=== PATIENT | female | born 1950 | race American Indian/Alaskan Native ===

== ENCOUNTER 2017-11-11 14:15 | Emergency (ER) | payer MEDICARE, MEDICAID ==
[2017-11-11 14:51] VITALS: BP 124/65
[2017-11-11 15:39] LABS: ANION GAP 15.9; CHLORIDE,CL 93 mmol/L (101-111); SODIUM,NA 132 mmol/L (135-145)
[2017-11-11] MEDS ORDERED: Potassium Chloride 10 MEQ Tab.ER PO ONE (16:16)
--- NOTE | 2017-11-11 16:16 | EDM.PDOC ---
ED HPI GENERAL MEDICAL PROBLEM - General Chief Complaint: Respiratory Problem Stated Complaint: FLU [id number] Time Seen by Provider: 11/11/17 15:00 Source of Information: Reports: Patient, RN, RN Notes Reviewed History Limitations: Reports: No Limitations - History of Present Illness INITIAL COMMENTS - FREE TEXT/NARRATIVE: Patient presents to ER with complaint of headache, chest pain, cough with green sputum for almost 1 week with decreased appetite and shortness of breath. She has fever and chills. No nausea, vomiting or diarrhea. Onset: Gradual Duration: Getting Worse Location: Reports: Chest Quality: Reports: Ache Severity: Moderate Improves with: Reports: None Worsens with: Reports: None Associated Symptoms: Reports: No Other Symptoms Chest Pain Score (Numeric/FACES): 8 - Related Data Allergies Allergy/AdvReac Type Severity Reaction Status Date / Time No Known Allergies Allergy Verified 03/23/13 18:51 Home Meds: Home Meds Albuterol [Proventil Neb Soln] 0.63 mg INH DAILY PRN 03/23/13 [History] Cetirizine [ZyrTEC] 5 mg PO DAILY 03/23/13 [History] Fluticasone/Salmeterol [Advair 100-50 Diskus] 2 puff INH BID 03/23/13 [History] Omeprazole 20 mg PO DAILY 03/23/13 [History] Tiotropium [Spiriva] 18 mcg INH DAILY 03/23/13 [History] hydroCHLOROthiazide [Hydrochlorothiazide] 12.5 mg PO DAILY 03/23/13 [History] Mirtazapine 30 mg PO BEDTIME 10/30/13 [History] Venlafaxine HCl [Venlafaxine ER] 112.5 mg PO DAILY 10/30/13 [History] Oxybutynin 10 mg PO BID 08/02/15 [History] Past Medical History HEENT History: Reports: Allergic Rhinitis, Impaired Vision Cardiovascular History: Reports: Hypertension Respiratory History: Reports: COPD, SOB Gastrointestinal History: Reports: GERD Genitourinary History: Reports: Retention, Urinary Musculoskeletal History: Reports: Back Pain, Chronic, Osteoarthritis Psychiatric History: Reports: Anxiety, Depression - Past Surgical History GI Surgical History: Reports: Appendectomy Female Surgical History: Reports: Cystectomy Musculoskeletal Surgical History: Reports: Shoulder Surgery Social & Family History - Family History Family Medical History: Noncontributory - Tobacco Use Smoking Status *Q: Current Every Day Smoker Years of Tobacco use: 50 Packs/Tins Daily: 0.7 - Recreational Drug Use Recreational Drug Use: Yes Recreational Drug Type: Reports: Marijuana/Hashish - Living Situation & Occupation Occupation: Retired ED ROS GENERAL - Review of Systems Review Of Systems: ROS reveals no pertinent complaints other than HPI. ED EXAM, GENERAL - Physical Exam Exam: See Below Exam Limited By: No Limitations General Appearance: Other (generally ill appearing) Eye Exam: Bilateral Eye: EOMI, Normal Inspection, PERRL Ears: Normal External Exam, Normal Canal, Hearing Grossly Normal, Normal TMs Nose: Normal Inspection, Normal Mucosa, No Blood Throat/Mouth: Normal Inspection Head: Atraumatic, Normocephalic Neck: Normal Inspection, Supple, Non-Tender, Full Range of Motion Respiratory/Chest: Other (diminished crackles and wheezes bilaterally) Cardiovascular: Normal Peripheral Pulses, Regular Rate, Rhythm, No Edema, No Gallop, No JVD, No Murmur, No Rub GI/Abdominal: Normal Bowel Sounds, Soft, Non-Tender, No Organomegaly, No Distention, No Abnormal Bruit, No Mass (Female) Exam: Deferred Rectal (Female) Exam: Deferred Back Exam: Normal Inspection, Full Range of Motion, NT Extremities: Normal Inspection, Normal Range of Motion, Non-Tender, Normal Capillary Refill, No Pedal Edema Neurological: Alert, Oriented, CN II-XII Intact, Normal Cognition, Normal Gait, Normal Reflexes, No Motor/Sensory Deficits Psychiatric: Normal Affect, Normal Mood Skin Exam: Warm, Dry, Intact, Normal Color, No Rash Lymphatic: No Adenopathy EKG INTERPRETATION EKG Date: 11/11/17 Time: 15:17 Rhythm: Other (sinus rhythm with PAC) Rate (Beats/Min): 73 Comparison: No Change Course - Vital Signs Last Recorded V/S: Last Vital Signs Temp 99.2 F 11/11/17 14:50 Pulse 75 11/11/17 14:50 Resp 20 11/11/17 14:50 BP 124/65 11/11/17 14:50 Pulse Ox - Orders/Labs/Meds Orders: Active Orders 24 hr Category Date Time Status EKG Documentation Completion [RC] STAT Care 11/11/17 15:05 Active Labs: Laboratory Tests 09/14/18 09/14/18 Range/Units 15:12 15:12 WBC 10.1 H (5.0-10.0) 10^3/uL RBC 5.00 (4.2-5.4) 10^6/uL Hgb 13.5 D (12.0-16.0) g/dL Hct 39.9 (37.0-47.0) % MCV 79.8 L D (80-100) fL MCH 27.0 (27.0-34.0) pg MCHC 33.8 (33.0-35.0) g/dL Plt Count 251 (150-450) 10^3/uL Neut % (Auto) 82.3 H (42.2-75.2) % Lymph % (Auto) 9.4 L (20.5-50.1) % Morrison % (Auto) 7.9 (2-8) % Eos % (Auto) 0.3 L (1.0-3.0) % Baso % (Auto) 0.1 (0.0-1.0) % Add Manual Diff Yes Neutrophils % (Manual) 82 H (42-75) % Band Neutrophils % 1 % Lymphocytes % (Manual) 9 L (20-50) % Atypical Lymphs % 3 % Monocytes % (Manual) 5 (2-8) % Sodium 132 L (135-145) mmol/L Potassium 2.9 L D (3.6-5.0) mmol/L Chloride 93 L (101-111) mmol/L Carbon Dioxide 26.0 (21.0-31.0) mmol/L Anion Gap 15.9 BUN 16 (7-18) mg/dL Creatinine 0.9 (0.6-1.3) mg/dL Est Cr Clr Drug Dosing 48.80 mL/min Estimated GFR (MDRD) > 60 BUN/Creatinine Ratio 17.77 Glucose 105 (74-105) mg/dL Calcium 8.9 (8.4-10.2) mg/dl Total Bilirubin 0.9 (0.2-1.0) mg/dL AST 20 (10-42) IU/L ALT 14 (10-60) IU/L Alkaline Phosphatase 149 H (42-121) IU/L Troponin I < 0.02 (0.00-0.02) ng/ml Total Protein 8.8 H (6.7-8.2) g/dl Albumin 3.5 (3.2-5.5) g/dl Globulin 5.3 Albumin/Globulin Ratio 0.66 Meds: Medications Discontinued Medications Generic Name Dose Route Start Last Admin Trade Name Yan PRN Reason Stop Dose Admin Potassium Chloride 40 meq 11/11/17 16:16 11/11/17 16:36 Klor-Con 10 PO 11/11/17 16:17 40 meq ONETIME ONE Administration - Radiology Interpretation Free Text/Narrative:: chest xray: IMPRESSION: Patchy airspace disease at the left base. New since the prior exam. Atherosclerosis. Mild pulmonary emphysema. Thank you for allowing us to participate in the care of your patient. Dictated and Authenticated by: Gladis Mistry MD 11/11/2017 3:47 PM Central Time ([place] & [place]) See rad report Departure - Departure Time of Disposition: 16:22 Disposition: Home, Self-Care 01 Condition: Fair Clinical Impression: Acute exacerbation of chronic obstructive pulmonary disease (COPD) - Discharge Information *PRESCRIPTION DRUG MONITORING PROGRAM REVIEWED*: No *COPY OF PRESCRIPTION DRUG MONITORING REPORT IN PATIENT SAJI: No Instructions: Hypokalemia Referrals: Kenneth Gonzales MD [Primary Care Provider] - Forms: ED Department Discharge Additional Instructions: RX: Tessalon Perles, Prednisone, Albuterol Inhaler, Potassium Chloride, Azithromycin Follow up with your primary care facility next week. - My Orders Last 24 Hours: My Active Orders 11/11/17 15:05 EKG Documentation Completion [RC] STAT - Assessment/Plan Last 24 Hours: My Active Orders 11/11/17 15:05 EKG Documentation Completion [RC] STAT
== END 2017-11-11 16:39 | disposition home or self-care (01) ==
LOC: DL.ED 14:15
DX: J44.1 Chronic obstructive pulmonary disease with (acute) exacerbation (principal); I10 Essential (primary) hypertension; F17.210 Nicotine dependence, cigarettes, uncomplicated; Z79.899 Other long term (current) drug therapy
CPT/HCPCS: 36415; 71046; 80053; 84484; 85025; 93005; 99284; A9270; 93010

== ENCOUNTER 2018-10-22 05:28 | Emergency (ER) | payer MEDICARE, OTHER ==
[2018-10-22 05:50] VITALS: BP 109/76
[2018-10-22] MEDS ORDERED: Albuterol/Ipratropium 3.0-0.5 MG/3 ML Neb Soln NEB ONE (05:59)
[2018-10-22] MEDS ORDERED: methylPREDNISolone Sodium Succinate 125 MG/2 ML SDV IVPUSH ONE (05:59)
--- NOTE | 2018-10-22 06:09 | EDM.PDOC ---
<Albert Coley - Last Filed: 10/22/18 06:17> ED HPI GENERAL MEDICAL PROBLEM - General Chief Complaint: Respiratory Problem Stated Complaint: PNEUMONIA Time Seen by Provider: 10/22/18 06:06 Source of Information: Reports: Patient History Limitations: Reports: No Limitations - History of Present Illness INITIAL COMMENTS - FREE TEXT/NARRATIVE: sob past 3 days worse tonight, just d/c from [facility] for pneumonia and was Dx with lung CA pending biopsy. not on home O2 yet. 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: Other Medication(s) Generalized Pain Score (Numeric/FACES): 4 - Related Data Allergies Allergy/AdvReac Type Severity Reaction Status Date / Time No Known Allergies Allergy Verified 10/22/18 06:13 Home Meds: Home Meds Albuterol [Proventil Neb Soln] 0.63 mg INH DAILY PRN 03/23/13 [History] Cetirizine [ZyrTEC] 5 mg PO DAILY 03/23/13 [History] Fluticasone/Salmeterol [Advair 100-50 Diskus] 2 puff INH BID 03/23/13 [History] Omeprazole 20 mg PO DAILY 03/23/13 [History] Tiotropium [Spiriva] 18 mcg INH DAILY 03/23/13 [History] hydroCHLOROthiazide [Hydrochlorothiazide] 12.5 mg PO DAILY 03/23/13 [History] Mirtazapine 30 mg PO BEDTIME 10/30/13 [History] Venlafaxine HCl [Venlafaxine ER] 112.5 mg PO DAILY 10/30/13 [History] Oxybutynin 10 mg PO BID 08/02/15 [History] Past Medical History HEENT History: Reports: Allergic Rhinitis, Impaired Vision Cardiovascular History: Reports: Hypertension Respiratory History: Reports: COPD, SOB Gastrointestinal History: Reports: GERD Genitourinary History: Reports: Retention, Urinary Musculoskeletal History: Reports: Back Pain, Chronic, Osteoarthritis Psychiatric History: Reports: Anxiety, Depression Oncologic (Cancer) History: Reports: Lung Other Oncologic History: States new dx within the last few weeks. Awaiting biopsy this week. - Past Surgical History GI Surgical History: Reports: Appendectomy Female Surgical History: Reports: Cystectomy Musculoskeletal Surgical History: Reports: Shoulder Surgery Oncologic Surgical History: Reports: None Social & Family History - Family History Family Medical History: Noncontributory - Tobacco Use Smoking Status *Q: Current Some Day Smoker Years of Tobacco use: 55 Packs/Tins Daily: 0.2 Used Tobacco, but Quit: No Second Hand Smoke Exposure: Yes - Caffeine Use Caffeine Use: Reports: Coffee, Soda - Recreational Drug Use Recreational Drug Use: Yes Drug Use in Last 12 Months: Yes Recreational Drug Type: Reports: Marijuana/Hashish Recreational Drug Use Frequency: Binges Recreational Drug Last Use: yesterday - Living Situation & Occupation Occupation: Retired ED ROS GENERAL - Review of Systems Review Of Systems: ROS reveals no pertinent complaints other than HPI. ED EXAM, GENERAL - Physical Exam Exam: See Below Exam Limited By: No Limitations General Appearance: Alert, WD/WN, Mild Distress (sob) Ears: Hearing Grossly Normal Throat/Mouth: Normal Voice, No Airway Compromise Head: Atraumatic Neck: Non-Tender, Full Range of Motion Respiratory/Chest: Decreased Breath Sounds, Rales, Rhonchi, Wheezing, Accessory Muscle Use, Other (subcostal) Cardiovascular: Regular Rate, Rhythm GI/Abdominal: Soft, Non-Tender Neurological: Alert, Oriented, Normal Cognition, Normal Gait, No Motor/Sensory Deficits Psychiatric: Normal Affect, Normal Mood Skin Exam: Warm, Dry, Normal Color Lymphatic: No Adenopathy Course - Vital Signs Last Recorded V/S: Last Vital Signs Temp 36.6 C 10/22/18 05:45 Pulse 111 H 10/22/18 05:45 Resp 24 H 10/22/18 05:45 BP 109/76 10/22/18 05:45 Pulse Ox 92 L 10/22/18 05:51 - Orders/Labs/Meds Orders: Active Orders 24 hr Category Date Time Status RT Aerosol Therapy [RC] ASDIRECTED Care 10/22/18 05:59 Active Chest 1V Frontal [CR] Urgent Exams 10/22/18 06:14 Taken CULTURE BLOOD [BC] Stat Lab 10/22/18 06:13 Received Labs: Laboratory Tests 10/22/18 10/22/18 10/22/18 Range/Units 06:09 06:09 06:09 WBC 8.7 (5.0-10.0) 10^3/uL RBC 5.10 (4.2-5.4) 10^6/uL Hgb 13.2 (12.0-16.0) g/dL Hct 40.0 (37.0-47.0) % MCV 78.4 L (80-100) fL MCH 25.9 L (27.0-34.0) pg MCHC 33.0 (33.0-35.0) g/dL Plt Count 214 (150-450) 10^3/uL Neut % (Auto) 80.0 H (42.2-75.2) % Lymph % (Auto) 10.1 L (20.5-50.1) % Bowie % (Auto) 8.9 H (2-8) % Eos % (Auto) 0.8 L (1.0-3.0) % Baso % (Auto) 0.2 (0.0-1.0) % Sodium 133 L (135-145) mmol/L Potassium 2.6 L (3.6-5.0) mmol/L Chloride 95 L (101-111) mmol/L Carbon Dioxide 29.0 (21.0-31.0) mmol/L Anion Gap 11.6 BUN 10 (7-18) mg/dL Creatinine 0.7 (0.6-1.3) mg/dL Est Cr Clr Drug Dosing 59.15 mL/min Estimated GFR (MDRD) > 60 BUN/Creatinine Ratio 14.28 Glucose 125 H (74-105) mg/dL Lactic Acid 0.7 (0.5-2.2) mmol/L Calcium 8.3 L (8.4-10.2) mg/dl Total Bilirubin 0.8 (0.2-1.0) mg/dL AST 21 (10-42) IU/L ALT 11 (10-60) IU/L Alkaline Phosphatase 88 (42-121) IU/L Total Protein 7.0 (6.7-8.2) g/dl Albumin 3.2 (3.2-5.5) g/dl Globulin 3.8 Albumin/Globulin Ratio 0.84 Meds: Medications Discontinued Medications Generic Name Dose Route Start Last Admin Trade Name Freq PRN Reason Stop Dose Admin Albuterol/Ipratropium 3 ml 10/22/18 05:59 10/22/18 06:17 Duoneb 3.0-0.5 Mg/3 Ml NEB 10/22/18 06:00 3 ml ONETIME ONE Administration Lorazepam 1 mg 10/22/18 06:27 08/25/19 06:40 Ativan IVPUSH 10/22/18 06:28 1 mg ONETIME ONE Administration Methylprednisolone Sodium Succinate 125 mg 10/22/18 05:59 10/22/18 06:18 Solu-Medrol IVPUSH 10/22/18 06:00 125 mg ONETIME ONE Administration Departure - Departure Disposition: DC/Tfer to [facility] 02 Clinical Impression: Shortness of breath, History of lung cancer - Discharge Information Forms: Interfacility Transfer EMTALA Care Plan Goals: Discussed the patient's history, future appointments (PET scan and biopsy), labs and x-ray results with Dr. Rodriguez. Dr. Rodriguez accepted the patient for continued evaluation and further management as an inpatient at [facility]. If the patient has any additional symptoms or concerns, the patient should either return to the emergency department or visit her primary care facility. <Francisco Garcia - Last Filed: 10/22/18 07:24> Course - Re-Assessments/Exams Free Text/Narrative Re-Assessment/Exam: 10/22/18 07:[address] Coley at shift change. After review of the patient's labs and chest x-ray, a call was placed to [facility] to arrange for continued evaluation and management. Departure - Departure Time of Disposition: 07:20 Condition: Poor - Discharge Information *PRESCRIPTION DRUG MONITORING PROGRAM REVIEWED*: Not Applicable *COPY OF PRESCRIPTION DRUG MONITORING REPORT IN PATIENT SAJI: Not Applicable
[2018-10-22] MEDS ORDERED: LORazepam 2 MG/ML Syringe IVPUSH ONE (06:27)
[2018-10-22 06:35] LABS: ANION GAP 11.6; CHLORIDE,CL 95 mmol/L (101-111); SODIUM,NA 133 mmol/L (135-145)
== END 2018-10-22 07:45 ==
LOC: DL.ED 05:28
DX: R06.02 Shortness of breath (principal); I10 Essential (primary) hypertension; K21.9 Gastro-esophageal reflux disease without esophagitis; J44.9 Chronic obstructive pulmonary disease, unspecified; M19.90 Unspecified osteoarthritis, unspecified site; F17.210 Nicotine dependence, cigarettes, uncomplicated; C34.90 Malignant neoplasm of unspecified part of unspecified bronchus or lung; Z79.51 Long term (current) use of inhaled steroids; Z90.6 Acquired absence of other parts of urinary tract; Z79.899 Other long term (current) drug therapy; Z90.49 Acquired absence of other specified parts of digestive tract
CPT/HCPCS: 36415; 71045; 80053; 83605; 85025; 87040; 96374; 96375; 99285; J2060; J2930; J7620-GY